=== PATIENT | male | born 1975 | race Caucasian/White ===

== ENCOUNTER 2019-01-07 08:36 | Inpatient (IN) | payer MEDICAID ==
[~2019-01-07] VITALS: Ht 185.4 cm; Wt 61.0 kg
[2019-01-07 09:30] LABS: Basophils # (auto) 0.1 uL; Basophils % (auto) 0.5 % (0.0-2.0); Eosinophils # (auto) 0.2 uL; Hematocrit 51.8 % (41.0-53.0); Hemoglobin 17.2 g/dL (13.5-17.5); Lymphocytes # (auto) 2.4 uL; Lymphocytes % (auto) 21.5 % (10.0-50.0); Mean Corpuscular Hemoglobin 31.3 pg (28.0-32.0); Mean Corpuscular Hgb Conc. 33.3 g/dL (32.0-36.0); Mean Corpuscular Volume 94.2 fL (80.0-100.0); Monocytes # (auto) 0.8 uL; Monocytes % (auto) 6.7 % (0.0-12.0); Neutrophils # (auto) 7.8 uL; Neutrophils % (auto) 69.3 % (37.0-80.0); Platelet Count (auto) 383 10^3/uL (140-450); Red Cell Distribution Width 13.8 % (11.8-14.3); White Blood Cell 11.3 10^3/uL (4.4-10.8)
[2019-01-07 09:50] LABS: Albumin 2.9 g/dL (3.4-5.0); Calcium 8.5 mg/dL (8.5-10.1); Potassium 3.9 mmol/L (3.5-5.1)
[2019-01-07 09:53] LABS: Bilirubin, Total 0.4 mg/dL (0.2-1.0); Total Protein 7.6 g/dL (6.4-8.2)
[2019-01-07] MEDS ORDERED: SODIUM CHLORIDE 0.9% 1,000 ML IVB ONE (10:56)
[2019-01-07] MEDS ORDERED: ONDANSETRON HCL 4 MG/2 ML VIAL IV ONE (11:00)
[2019-01-07 11:21] LABS: Magnesium 2.1 mg/dL (1.6-2.6)
[2019-01-07 11:36] LABS: INR 1.09 (0.9-1.15); Partial Thromboplastin Time 31.5 sec (23.78-33.04); Prothrombin Time 11.6 sec (9.27-12.13)
[2019-01-07] MEDS ORDERED: PANTOPRAZOLE 40 MG/10 ML VIAL IV ONE ×2 (13:30→14:15)
[2019-01-07] MEDS ORDERED: cefTRIAXone 1GM/50ML D5W 50 ML IV ONE (14:15)
[2019-01-07] MEDS ORDERED: MORPHINE SULFATE 4 MG/ML SYR/VIAL IV PRN (14:15)
[2019-01-07] MEDS ORDERED: GASTROGRAFIN 120 ML SOL ONE (14:17)
[2019-01-07] MEDS ORDERED: IOTHALAMATE MEGLUMINE INJ 250ML BOT UR ONE (14:17)
[2019-01-07] MEDS: SODIUM CHLORIDE 0.9% 1,000 ML IV SCH (16:04)
[2019-01-07 19:45] VITALS: BP 119/76
--- NOTE | 2019-01-07 19:45 | NUR ---
MS admit from [facility] admitted to MS. Patient oriented to Lluvia Qiu, primary RN, unit, room, bed, and unit policies regarding patient care and visiting hours. Patient weighed by bedscale and encouraged to call if they need something. All questions and concerns addressed, patient verbalized understanding. Note: alert and oriented x 4. on oxygen at 2L via NC with even and unlabored respirations, no s/s of distress or SOB. Patient reports burning and pain upon voiding. Patient reports he was discharged from [facility] on October 19 and left with abd pain and nausea since discharge. Patient reports he vomits periodically through week. IV intact and patent, infusing NS at 60mL/hr. Patient reports abd pain 10/10, will follow up with pain medication per orders. Patient is ambulatory with steady gait and turns independently in bed. Instructed patient on POC, patient verbalized understanding. Will continue care.
[2019-01-07 20:00] VITALS: BP 119/76
[2019-01-07] MEDS: ONDANSETRON HCL 4 MG/2 ML VIAL IV PRN (20:20)
[2019-01-07 21:15] LABS: Urine Bacteria MANY /hpf (None Seen); Urine Blood 2+ /uL (Negative); Urine Specific Gravity 1.009 (1.001-1.035); Urine WBC 62 /hpf (0 - 3); Urine WBC Clumps PRESENT /hpf (None Seen)
--- NOTE | 2019-01-07 22:10 | NUR ---
POM taken to pharmacy
[2019-01-08] MEDS ORDERED: APIX5TAB OR (04:34)
[2019-01-08 05:00] VITALS: BP 95/61
[2019-01-08 05:39] LABS: Basophils # (auto) 0 uL; Basophils % (auto) 0.6 % (0.0-2.0); Eosinophils # (auto) 0.5 uL; Eosinophils % (auto) 5.9 % (0.0-7.0); Hematocrit 44.4 % (41.0-53.0); Hemoglobin 14.8 g/dL (13.5-17.5); Lymphocytes # (auto) 2.8 uL; Lymphocytes % (auto) 35.6 % (10.0-50.0); Mean Corpuscular Hemoglobin 31.5 pg (28.0-32.0); Mean Corpuscular Hgb Conc. 33.4 g/dL (32.0-36.0); Mean Corpuscular Volume 94.5 fL (80.0-100.0); Monocytes # (auto) 0.5 uL; Monocytes % (auto) 6.6 % (0.0-12.0); Neutrophils % (auto) 51.3 % (37.0-80.0); Platelet Count (auto) 300 10^3/uL (140-450); Red Cell Distribution Width 13.8 % (11.8-14.3); White Blood Cell 7.8 10^3/uL (4.4-10.8)
[2019-01-08 06:02] LABS: BUN/Creatinine Ratio 11.5; Potassium 4.5 mmol/L (3.5-5.1)
[2019-01-08] MEDS: SODIUM CHLORIDE 0.9% 1,000 ML IV SCH (06:55)
--- NOTE | 2019-01-08 07:03 | NUR ---
Closing Note patient sleeping with even and unlabored respiration. no s/s of distress. IV intact and patent infusing NS at 60mL/hr. Endorsed care to day shift RN
--- NOTE | 2019-01-08 07:46 | NUR ---
Assumed care of pt, awake and alert, no s&s of distress/sob or pain noted, instructed on poc and to call for assist prn, will continue to monitor for changes q1h and prn.
[2019-01-08 09:00] VITALS: BP 92/59
[2019-01-08] MEDS: cefTRIAXone 1GM/50ML D5W 50 ML IV SCH (09:03)
[2019-01-08] MEDS ORDERED: PANTOPRAZOLE 40 MG/10 ML VIAL IV SCH (10:00)
[2019-01-08] MEDS ORDERED: EZ-GAS II GRANULES (RADIOLOGY USE) PO ONE (12:00)
[2019-01-08] MEDS ORDERED: BARIUM SULFATE 98% 340 GM PWDR ONE (12:01)
[2019-01-08] MEDS ORDERED: EZ PAQUE SUSP 12OZ BTL ONE (12:01)
--- NOTE | 2019-01-08 12:14 | NUR ---
Pt awake and alert, no s&s of distress/sob or pain noted, will continue to monitor for changes q1h and prn.
[2019-01-08] MEDS ORDERED: ENOXAPARIN SOD 60 MG/0.6 ML SYRINGE SC ONE (12:45)
[2019-01-08] MEDS: ENOXAPARIN SOD 60 MG/0.6 ML SYRINGE SC SCH ×2 (12:55→21:04)
[2019-01-08 13:00] VITALS: BP 113/77
--- NOTE | 2019-01-08 13:32 | NUR ---
Diez catheter inserted, tolerated fairly.
[2019-01-08] MEDS ORDERED: IOTHALAMATE MEGLUMINE INJ 250ML BOT UR ONE (13:41)
[2019-01-08] MEDS: SOD CHL 0.45% 1,000 ML IV SCH (14:51)
--- NOTE | 2019-01-08 15:44 | NUR ---
Pt awake and alert, no s&s of distress/sob or pain noted, will continue to monitor for changes q1h and prn.
--- NOTE | 2019-01-08 16:07 | NUR ---
Diez catheter discontinued, tolerated well.
[2019-01-08 20:00] VITALS: BP 111/76
--- NOTE | 2019-01-08 20:00 | NUR ---
Opening Shift Note Assumed care of patient, awake and alert. on oxygen at 2L via NC with even and unlabored respirations, no s/s of distress or SOB. Patient reports less burning and pain upon voiding. Patient reports nausea. IV intact and patent, infusing 0.45%NS at 75mL/hr. Patient reports tolerable abd pain 6/10 at this time, educated on pain management, patient verbalized understanding. Patient is ambulatory with steady gait and turns independently in bed. Instructed patient on POC and to call for assist PRN, will continue to monitor for changes Q1hr and PRN.
[2019-01-08] MEDS: PANTOPRAZOLE 40 MG TAB PO SCH (21:04)
[2019-01-08] MEDS: ONDANSETRON HCL 4 MG/2 ML VIAL IV PRN (21:14)
[2019-01-08 21:41] VITALS: BP 111/76
--- NOTE | 2019-01-09 00:57 | NUR ---
Care endorsed to Umu REYES report given. patient resting with even and unlabored respirations. no s/s of distress.
[2019-01-09] MEDS: SOD CHL 0.45% 1,000 ML IV SCH ×2 (04:05→17:25)
[2019-01-09 05:00] VITALS: BP 105/64
--- NOTE | 2019-01-09 07:40 | NUR ---
Opening Shift Note Assumed care of patient, awake and alert laying in bed. No S/S of distress/SOB or pain. Instructed on POC and to call for assist PRN, will continue to monitor for changes Q1hr and PRN. NPO status maintained for UGI.
[2019-01-09] MEDS ORDERED: EZ-GAS II GRANULES (RADIOLOGY USE) PO ONE (09:01)
[2019-01-09] MEDS ORDERED: GASTROGRAFIN 120 ML SOL ONE ×2 (09:01→09:06)
[2019-01-09] MEDS ORDERED: EZ PAQUE SUSP 12OZ BTL ONE (09:07)
--- NOTE | 2019-01-09 09:10 | NUR ---
Patient left unit in wheelchair with refinery technician.
--- NOTE | 2019-01-09 10:00 | NUR ---
Family members at bedside awaiting patient's return to unit.
--- NOTE | 2019-01-09 10:30 | NUR ---
Patient returned to unit in wheelchair. Family members at bedside. with patient.
[2019-01-09] MEDS: ENOXAPARIN SOD 60 MG/0.6 ML SYRINGE SC SCH ×2 (10:43→23:03)
[2019-01-09] MEDS: cefTRIAXone 1GM/50ML D5W 50 ML IV SCH (10:43)
[2019-01-09] MEDS: ONDANSETRON HCL 4 MG/2 ML VIAL IV PRN (10:43)
[2019-01-09] MEDS: PANTOPRAZOLE 40 MG TAB PO SCH ×2 (10:43→23:04)
[2019-01-09] MEDS: HYDROcodone-ACET 5/325MG TAB PO PRN ×2 (10:44→23:04)
[2019-01-09 17:00] VITALS: BP 94/61
--- NOTE | 2019-01-09 18:42 | NUR ---
Patient sitting in chair at bedside. No complaints of pain or SOB.
[2019-01-09 21:36] VITALS: BP 107/71
[2019-01-10 05:00] VITALS: BP 100/60
[2019-01-10] MEDS: SOD CHL 0.45% 1,000 ML IV SCH (05:45)
[2019-01-10] MEDS: HYDROcodone-ACET 5/325MG TAB PO PRN ×3 (07:48→20:19)
[2019-01-10 09:00] VITALS: BP 100/67
[2019-01-10] MEDS: ENOXAPARIN SOD 60 MG/0.6 ML SYRINGE SC SCH ×2 (09:39→21:14)
[2019-01-10] MEDS: PANTOPRAZOLE 40 MG TAB PO SCH ×2 (09:39→21:14)
[2019-01-10] MEDS: cefTRIAXone 1GM/50ML D5W 50 ML IV SCH (09:39)
[2019-01-10] MEDS: SUCRALFATE 1 GM/10 ML ORAL SUSP PO SCH ×3 (12:07→21:13)
[2019-01-10 13:00] VITALS: BP 96/69
--- NOTE | 2019-01-10 15:00 | NUR ---
IV insertion IV access obtained, via clean sterile technique by inserting 20 gauge catheter at right forearm after 1 attempt. IV secured properly. No trauma to site. Patient tolerated well. IV to left AC removed with catheter intact and pressure dressing applied.
[2019-01-10 16:21] VITALS: BP 91/66
--- NOTE | 2019-01-10 19:30 | NUR ---
OPENING NOTE REPORT RECEIVED FROM DAY SHIFT RN PATIENT IS RESTING IN BED, C/O ABD PAIN AFTER EATING DINNER. PT REQUESTS NORCO. PATIENT EDUCATED THAT NORCO IS NOT DUE AT THIS TIME. FULL PHYSICAL ASSESSMENT DONE-SEE INTERVENTIONS.POC FOR TONIGHT DISCUSSED, ALL QUESTIONS ANSWERED.CALL LIGHT WITHIN REACH.
--- NOTE | 2019-01-10 20:15 | NUR ---
NPO AT MIDNIGHT SPOKE WITH US TECH, SINCE PATIENT ATE DINNER TRAY, ULTRASOUND CANNOT BE DONE AT THIS TIME. PER CORPORATE HEALTH CONSULTANT, "KEEP PATIENT NPO AFTER MIDNIGHT" WILL EDUCATE PATIENT NOT TO EAT OR DRINK ANYTHING AFTER MIDNIGHT
[2019-01-10 22:00] VITALS: BP 100/68
--- NOTE | 2019-01-10 22:00 | NUR ---
BLADDER SCAN ORDER FROM FOR BLADDER SCAN BLADDER SCAN REVEALED >200mL urine in bladder pre-void. DURING SCAN, PATIENT STATED HE NEEDED TO VOID. PATIENT WENT TO RESTROOM AND WAS ABLE TO VOID WITHOUT DIFFICULTY. POST VOID SCAN REVEALED <10mL IN BLADDER PATIENT DENIES ANY FULLNESS OR RETENTION S/P VOID.
[2019-01-11 05:00] VITALS: BP 97/72
[2019-01-11 05:56] LABS: Basophils # (auto) 0 uL; Basophils % (auto) 0.4 % (0.0-2.0); Eosinophils # (auto) 0.2 uL; Eosinophils % (auto) 1.8 % (0.0-7.0); Hematocrit 48.1 % (41.0-53.0); Lymphocytes # (auto) 2.9 uL; Lymphocytes % (auto) 28.2 % (10.0-50.0); Mean Corpuscular Hgb Conc. 33.3 g/dL (32.0-36.0); Mean Corpuscular Volume 93.2 fL (80.0-100.0); Monocytes # (auto) 0.5 uL; Monocytes % (auto) 5.3 % (0.0-12.0); Neutrophils # (auto) 6.6 uL; Neutrophils % (auto) 64.3 % (37.0-80.0); Nucleated Red Blood Cells % 0.1 %; Platelet Count (auto) 344 10^3/uL (140-450); Red Blood Cells 5.16 10^6/uL (4.5-5.90); Red Cell Distribution Width 13.4 % (11.8-14.3); White Blood Cell 10.2 10^3/uL (4.4-10.8)
[2019-01-11 06:11] LABS: BUN/Creatinine Ratio 8.3; Calcium 7.9 mg/dL (8.5-10.1); Potassium 4.3 mmol/L (3.5-5.1)
[2019-01-11] MEDS: SUCRALFATE 1 GM/10 ML ORAL SUSP PO SCH ×4 (06:16→21:03)
--- NOTE | 2019-01-11 07:26 | NUR ---
CLOSING NOTE REPORT ENDORSED TO DAY SHIFT RN PATIENT STABLE THROUGHOUT NIGHT. PT NPO PENDING ABDOMINAL ULTRASOUND THIS MORNING. CALL LIGHT WITHIN REACH
--- NOTE | 2019-01-11 07:45 | NUR ---
Opening Shift Note Assumed care of patient, awake and alert. No S/S of distress/SOB or pain. Instructed on POC and to call for assist PRN, will continue to monitor for changes Q1hr and PRN. NPO status maintained for abdominal ultra sound.
[2019-01-11 08:00] VITALS: BP 94/55
[2019-01-11] MEDS: cefTRIAXone 1GM/50ML D5W 50 ML IV SCH (08:56)
[2019-01-11] MEDS: PANTOPRAZOLE 40 MG TAB PO SCH ×2 (08:56→21:03)
[2019-01-11] MEDS: ENOXAPARIN SOD 60 MG/0.6 ML SYRINGE SC SCH ×2 (09:00→21:03)
[2019-01-11 12:46] VITALS: BP 92/62
[2019-01-11] MEDS: HYDROcodone-ACET 5/325MG TAB PO PRN ×2 (12:46→20:00)
[2019-01-11] MEDS ORDERED: SODIUM CHLORIDE 0.9% 500 ML IV ONE (14:00)
--- NOTE | 2019-01-11 15:00 | NUR ---
NUTRITION ASSESSMENT NOTES Please refer to link notes of nutrition screen form filed under the intervention section of the plan of care for further details. Est. Needs based on IBW (84 kg): 2100 kcal to 2500 kcal (25-30 kcal/kgIBW), 67 gms to 84 gms pro (0.8-1.0 gms/kgBW). Will continue to monitor pertinent labs and reassess nutrient need prn Thank you. Addendum: 01/11/19 at [address] Amended: Links added.
[2019-01-11] MEDS: SODIUM CHLORIDE 0.9% 1,000 ML IV SCH ×2 (16:45→23:46)
[2019-01-11 16:59] VITALS: BP 108/73
--- NOTE | 2019-01-11 19:30 | NUR ---
OPENING NOTE REPORT RECEIVED FROM DAY SHIFT RN PATIENT IS A/OX4 SITTING UP AT BEDSIDE, EATING DINNER TRAY. PATIENT MADE AWARE TO BE NPO AT MIDNIGHT FOR PENDING EGD TOMORROW. POC FOR TONIGHT DISCUSSED AND ALL QUESTIONS ANSWERED. CALL LIGHT WITHIN REACH.
[2019-01-11 22:00] VITALS: BP 110/73
[2019-01-12 05:00] VITALS: BP 103/74
[2019-01-12] MEDS: SUCRALFATE 1 GM/10 ML ORAL SUSP PO SCH ×4 (05:45→23:07)
[2019-01-12 05:50] LABS: INR 1.03 (0.9-1.15); Partial Thromboplastin Time 29.9 sec (23.78-33.04)
[2019-01-12 06:16] LABS: Potassium 4.2 mmol/L (3.5-5.1)
[2019-01-12 06:28] LABS: Albumin 2.1 g/dL (3.4-5.0); Bilirubin, Total 0.2 mg/dL (0.2-1.0); Calcium 8.2 mg/dL (8.5-10.1); Total Protein 5.7 g/dL (6.4-8.2)
--- NOTE | 2019-01-12 07:42 | NUR ---
Patient sitting in bed, quiet.
--- NOTE | 2019-01-12 07:42 | NUR ---
Received patient on NPO. Patient said he has not talk to Bolivar Mallory yet regarding the EGD.
--- NOTE | 2019-01-12 07:42 | NUR ---
CLOSING NOTE REPORT ENDORSED TO DAY SHIFT RN PATIENT IS RESTING IN BED, NPO SINCE MIDNIGHT FOR PENDING EGD TODAY CONSENTS IN CHART TO BE SIGNED, ENDORSED TO DAY SHIFT RN
[2019-01-12] MEDS: cefTRIAXone 1GM/50ML D5W 50 ML IV SCH (08:24)
[2019-01-12] MEDS: SODIUM CHLORIDE 0.9% 1,000 ML IV SCH ×2 (08:25→21:29)
[2019-01-12] MEDS ORDERED: diphenhdrAMINE HCL 50 MG/1 ML VL ONE (08:32)
[2019-01-12] MEDS ORDERED: SODIUM CHLORIDE LOCK 10 ML ONE (08:32)
[2019-01-12] MEDS ORDERED: fentaNYL CITRATE 100 MCG/2 ML VL ONE (08:32)
[2019-01-12] MEDS ORDERED: LIDOCAINE VISCOUS 2% 15ML UD ONE (08:32)
[2019-01-12 08:42] VITALS: BP 101/63
[2019-01-12] MEDS: PANTOPRAZOLE 40 MG TAB PO SCH ×2 (09:20→23:07)
[2019-01-12] MEDS: ENOXAPARIN SOD 60 MG/0.6 ML SYRINGE SC SCH ×2 (09:20→23:07)
--- NOTE | 2019-01-12 10:06 | NUR ---
Celena Lundy came over. Patient refused Diez catheter insertion.
--- NOTE | 2019-01-12 10:30 | NUR ---
Dr. De La Rosa came over to see the patient.
[2019-01-12 13:00] VITALS: BP 103/78
--- NOTE | 2019-01-12 13:01 | NUR ---
Received a call from Pre Op RN Idalia to bring the patient to Pre Op in 20 minutes. Idalia made aware patient stated that he has not talked to Carline Mallory. yet, patient has not signed the EGD consents yet.
--- NOTE | 2019-01-12 13:45 | NUR ---
Patient transferred via wheelchair to Pre Op. No acute distress noted, IV line intact and patent. Endorsed patient to Pre Op RN Idalia. Patient has not signed the consents for EGD, stated he has not talked to the doctor yet.
[2019-01-12] MEDS: MIDAZOLAM HCL 5 MG/ML-1ML VIAL ONE ×2 (14:14→14:19)
--- NOTE | 2019-01-12 15:10 | NUR ---
Patient back to room post-EGD. Patient awake. On bed alarm.
[2019-01-12 17:03] VITALS: BP 100/63
[2019-01-12] MEDS: HYDROcodone-ACET 5/325MG TAB PO PRN (18:33)
--- NOTE | 2019-01-12 18:33 | NUR ---
Patient stated he's in pain, at 7/10 at this time. [place] 5/325 PO given as ordered.
[2019-01-12 22:00] VITALS: BP 97/69
[2019-01-13 04:49] VITALS: BP 94/60
[2019-01-13] MEDS: SODIUM CHLORIDE 0.9% 1,000 ML IV SCH ×2 (06:08→16:00)
[2019-01-13] MEDS: SUCRALFATE 1 GM/10 ML ORAL SUSP PO SCH ×3 (06:09→13:21)
--- NOTE | 2019-01-13 07:02 | NUR ---
SIGN OFF PATIENT RESTING IN BED. NO COMPLAINTS OF PAIN AT THIS TIME OR S/S OF DISTRESS OR SOB. BED IN LOWEST LOCKED POSITION AND CALL CLEANING W/IN REACH. ENDORSING CARE TO DAY RN.
--- NOTE | 2019-01-13 07:25 | NUR ---
On O2 at 2 LPM.
--- NOTE | 2019-01-13 07:25 | NUR ---
Patient in bed,a sleep. No acute distress noted.
[2019-01-13 08:07] VITALS: BP 121/65
[2019-01-13] MEDS ORDERED: ESOM40CA39 PO (09:19)
[2019-01-13] MEDS: ENOXAPARIN SOD 60 MG/0.6 ML SYRINGE SC SCH (09:39)
--- NOTE | 2019-01-13 09:40 | NUR ---
Patient sitting in bed, watching TV.
[2019-01-13] MEDS: cefTRIAXone 1GM/50ML D5W 50 ML IV SCH (09:42)
[2019-01-13] MEDS: PANTOPRAZOLE 40 MG TAB PO SCH (09:42)
--- NOTE | 2019-01-13 09:47 | NUR ---
Dr. De La Rosa at bedside. to put in discharge orders.
[2019-01-13 11:11] VITALS: BP 121/65
[2019-01-13 11:28] VITALS: BP 121/65
--- NOTE | 2019-01-13 12:15 | NUR ---
Patient eating lunch at this time, stated his sister will pick him up.
[2019-01-13 12:59] VITALS: BP 149/74
[2019-01-13 13:00] VITALS: BP 94/59
--- NOTE | 2019-01-13 15:55 | NUR ---
Discharge instructions given as ordered. Encourage to follow up with PMD as instructed. Patient to make a follow up appointment with Dr. Deutsch. All questions and concerns addressed. Patient verbalized understanding. Medication reconciliation form completed and copy given to patient. Home medications held in Pharmacy (Eliquis) returned to patient. IV removed with catheter intact, pressure dressing applied. Patient is taken to vehicle via wheelchair with all personal belongings, accompanied by staff and family member. No distress noted at time of departure.
[2019-01-13] MEDS ORDERED: Ensure Enlive Vanilla 8oz Bottle PO SCH (18:00)
== END 2019-01-13 15:55 | disposition home or self-care (01) | DRG 241 ==
LOC: ER 08:36 → OVERFLOW 14:13 → WEST WING 19:24
PROVIDERS: ADMIT Internal Medicine; ATTEND Internal Medicine
PROC: 0DB68ZX Excision of Stomach, Via Natural or Artificial Opening Endoscopic, Diagnostic (ICD-10-PCS; principal; 2019-01-12 14:08)
DX: K29.70 Gastritis, unspecified, without bleeding (principal); N17.0 Acute kidney failure with tubular necrosis; K56.600 Partial intestinal obstruction, unspecified as to cause; D68.51 Activated protein C resistance; I25.3 Aneurysm of heart; E44.0 Moderate protein-calorie malnutrition; N18.3 Chronic kidney disease, stage 3 (moderate); I27.20 Pulmonary hypertension, unspecified; N30.90 Cystitis, unspecified without hematuria; R39.89 Other symptoms and signs involving the genitourinary system; I25.10 Atherosclerotic heart disease of native coronary artery without angina pectoris; K92.1 Melena; N40.0 Benign prostatic hyperplasia without lower urinary tract symptoms; K57.30 Diverticulosis of large intestine without perforation or abscess without bleeding; K21.9 Gastro-esophageal reflux disease without esophagitis; F32.9 Major depressive disorder, single episode, unspecified; I25.2 Old myocardial infarction; Z79.01 Long term (current) use of anticoagulants; Z82.49 Family history of ischemic heart disease and other diseases of the circulatory system; Z83.3 Family history of diabetes mellitus; Z86.718 Personal history of other venous thrombosis and embolism; Z99.81 Dependence on supplemental oxygen; Z86.711 Personal history of pulmonary embolism
CPT/HCPCS: 36415; 71046; 74176; 74245; 74430; 76705; 80048; 80053; 81001; 82150; 83690; 83735; 83880; 84153; 84484; 85025; 85610; 85730; 87086; 94761; 96374; 96375; A6257; C9113; G0378; J0696; J2250; J2405

== ENCOUNTER 2020-09-15 21:54 | Inpatient (IN) | payer MEDICAID ==
[~2020-09-15] VITALS: Ht 188 cm; Wt 82.7 kg
[~2020-09-15 21:54] MED LIST: APIX5TAB OR; ESOM40CA39 PO
[2020-09-15 22:48] LABS: Basophils % (auto) 0.7 % (0.0-2.0); Eosinophils # (auto) 0 10 ^3/uL (0-0.8); Lymphocytes # (auto) 1.4 10 ^3/uL (0.4-5.4); Monocytes # (auto) 0.8 10 ^3/uL (0-1.3); White Blood Cell 7.1 10^3/uL (4.4-10.8)
[2020-09-15 22:49] LABS: Basophils # (auto) 0.1 10 ^3/uL (0-0.2); Eosinophils % (auto) 0.1 % (0.0-7.0); Hematocrit 54.1 % (41.0-53.0); Hemoglobin 18.2 g/dL (13.5-17.5); Lymphocytes % (auto) 20.4 % (10.0-50.0); Mean Corpuscular Hemoglobin 31.5 pg (28.0-32.0); Mean Corpuscular Hgb Conc. 33.7 g/dL (32.0-36.0); Mean Corpuscular Volume 93.6 fL (80.0-100.0); Monocytes % (auto) 11.8 % (0.0-12.0); Neutrophils # (auto) 4.7 10 ^3/uL (1.6-8.6); Nucleated Red Blood Cells % 0.2 %; Red Blood Cells 5.78 10^6/uL (4.5-5.90); Red Cell Distribution Width 14.9 % (11.8-14.3)
[2020-09-15 23:02] LABS: INR 2.77 (0.9-1.15); Partial Thromboplastin Time 37.4 sec (23.0-31.2)
[2020-09-15 23:03] LABS: Albumin 3.9 g/dL (3.4-5.0); Anion Gap 5 (5-15); BUN/Creatinine Ratio 14.9; Blood Urea Nitrogen 29 mg/dL (7-18); Calcium 8.5 mg/dL (8.5-10.1); Carbon Dioxide 24 mmol/L (21-32); Chloride 107 mmol/L (98-107); GFR African American 48 mL/min; GFR Non-African American 40 mL/min; Glucose 96 mg/dL (74-106); Platelet Count (auto) 188 10^3/uL (140-450); Potassium 5.1 mmol/L (3.5-5.1); Sodium 136 mmol/L (136-145)
[2020-09-15 23:07] LABS: Alanine Aminotransferase 22 U/L (16-61); Alkaline Phosphatase 82 U/L (45-117); Aspartate Aminotransferase 23 U/L (15-37); Bilirubin, Total 0.6 mg/dL (0.2-1.0); Total Protein 7.8 g/dL (6.4-8.2)
[2020-09-15] MEDS ORDERED: WARFARIN SODIUM 5 MG TAB PO ONE (23:15)
[2020-09-16] MEDS ORDERED: ACETAMINOPHEN 325 MG TAB PO PRN (03:00)
[2020-09-16] MEDS ORDERED: NITROGLYCERIN 0.4 MG SL TAB SL PRN (03:00)
[2020-09-16] MEDS ORDERED: MORPHINE SULF INJ 2 MG/ML SYRINGE 1ML IV PRN (03:00)
[2020-09-16] MEDS ORDERED: ONDANSETRON HCL 4 MG/2 ML VIAL IV PRN (03:00)
[2020-09-16 07:14] LABS: Urine Bacteria NONE SEEN /hpf (None Seen); Urine Blood Negative /uL (Negative); Urine Specific Gravity 1.017 (1.001-1.035); Urine WBC 6 /hpf (0 - 3)
[2020-09-16 08:35] LABS: Basophils # (auto) 0 10 ^3/uL (0-0.2); Basophils % (auto) 0.4 % (0.0-2.0); Eosinophils # (auto) 0 10 ^3/uL (0-0.8); Eosinophils % (auto) 0.4 % (0.0-7.0); Hematocrit 52.4 % (41.0-53.0); Hemoglobin 17.6 g/dL (13.5-17.5); Lymphocytes # (auto) 1.6 10 ^3/uL (0.4-5.4); Lymphocytes % (auto) 27.8 % (10.0-50.0); Mean Corpuscular Hemoglobin 31.4 pg (28.0-32.0); Mean Corpuscular Hgb Conc. 33.6 g/dL (32.0-36.0); Mean Corpuscular Volume 93.7 fL (80.0-100.0); Monocytes # (auto) 0.8 10 ^3/uL (0-1.3); Monocytes % (auto) 13.2 % (0.0-12.0); Neutrophils # (auto) 3.4 10 ^3/uL (1.6-8.6); Neutrophils % (auto) 58.2 % (37.0-80.0); Nucleated Red Blood Cells % 0.2 %; Platelet Count (auto) 159 10^3/uL (140-450); White Blood Cell 5.8 10^3/uL (4.4-10.8)
[2020-09-16 08:53] LABS: Albumin 3.5 g/dL (3.4-5.0); Anion Gap 3 (5-15); Blood Urea Nitrogen 29 mg/dL (7-18); Calcium 8.1 mg/dL (8.5-10.1); Carbon Dioxide 25 mmol/L (21-32); Chloride 110 mmol/L (98-107); Glucose 74 mg/dL (74-106); Potassium 4.7 mmol/L (3.5-5.1); Sodium 138 mmol/L (136-145)
[2020-09-16 09:03] LABS: Alanine Aminotransferase 20 U/L (16-61); Alkaline Phosphatase 72 U/L (45-117); Aspartate Aminotransferase 17 U/L (15-37); Bilirubin, Total 0.4 mg/dL (0.2-1.0); Cholesterol 189 mg/dL (< 200); GFR African American 52 mL/min; GFR Non-African American 43 mL/min; HDL Cholesterol 38 mg/dL (40-59); LDL Cholesterol 138 mg/dL (< 100); Total Protein 7.1 g/dL (6.4-8.2); Triglycerides 109 mg/dL (< 150)
--- NOTE | 2020-09-16 09:50 | NUR ---
Telemetry admit from ER RADABELARDO admitted to Telemetry unit after SBAR received Herrera. Patient oriented to Neisha Bradshaw RN primary RN, unit, room, bed, and unit policies regarding patient care and visiting hours. Patient now on continuous telemetry monitoring, tele box # 90 and telemetry reading on arrival to unit is Sinus Rhythm 80 bpm. Patient placed on bedside oxygen, weighed by bed scale and encouraged to call if they need something. All questions and concerns addressed, patient verbalized understanding.
[2020-09-16] MEDS: ATORVASTATIN 20 MG TAB PO SCH (10:31)
[2020-09-16] MEDS: ASPirin 81 mg TAB PO SCH (10:32)
[2020-09-16] MEDS: HEPARIN SODIUM (PORCINE) 5000 UNITS/ML 1ML VIAL SC SCH ×2 (10:32→22:12)
[2020-09-16 10:51] VITALS: BP 124/87
[2020-09-16] MEDS ORDERED: ADENOSINE 70 MG in GIVE UN-DILUTED 0 ML IV STA (11:11)
--- NOTE | 2020-09-16 11:12 | NUR ---
PATIENT TAKEN OFF UNIT TO NUCLEAR MEDICINE VIA WHEELCHAIR. PATIENT HAS NO S/S OF DISTRESS AT THIS TIME.
[2020-09-16 11:18] VITALS: BP 124/87
[2020-09-16] MEDS ORDERED: WARF1TAB36 PO ×2 (11:37)
[2020-09-16] MEDS ORDERED: INFLUENZA QUAD 2020-2021 0.5 ML SYRG IM ONE (11:45)
[2020-09-16 11:48] VITALS: BP 119/86
[2020-09-16 12:30] VITALS: BP 112/80
[2020-09-16 17:09] VITALS: BP 105/66
--- NOTE | 2020-09-16 19:00 | NUR ---
CLOSING SHIFT NOTE PATIENT HAS NO S/S OF DISTRESS/SOB OR PAIN AT THIS TIME. WILL ENDORSE CARE TO CANE STRIPPER ERIC REBOLLAR
--- NOTE | 2020-09-16 20:00 | NUR ---
RECEIVED PATIENT FROM DAY SHIFT RN. PATIENT RESTING IN BED. NO S/S OF DISTRESS NOTED. DENIED PAIN FOR NOW. POC INSTRUCTED AND ENCOURAGED PATIENT TO CALL FOR COTTON PROGRAM TECHNICIAN IF NEEDED. BED IN LOWEST POSITION WITH SIDE RAILS UP X 2. CALL CLEANING WITHIN REACH. ALARM ON. CONTINUE TO MONITOR FOR CHANGES Q1H AND PRN.
[2020-09-16 22:00] VITALS: BP 122/82
[2020-09-17 05:00] VITALS: BP 108/74
--- NOTE | 2020-09-17 07:15 | NUR ---
OPENING SHIFT NOTE ASSUMED CARE OF PATIENT FROM PLASTICS TOOLING ENGINEER RN KETURAH. PATIENT IS AWAKE, ALERT, AND ORIENTED X4. PATIENT HAS NO S/S OF DISTRESS/SOB OR PAIN. INSTRUCTED PATIENT ON POC, PATIENT VERBALIZED UNDERSTANDING. BED IS IN LOWEST POSITION WITH SIDE RAILS RAISED X2, BED WHEELS LOCKED, AND CALL LIGHT IS WITHIN REACH. WILL CONTINUE TO MONITOR.
[2020-09-17 09:00] VITALS: BP 98/61
[2020-09-17] MEDS: ASPirin 81 mg TAB PO SCH (09:55)
[2020-09-17] MEDS: ATORVASTATIN 20 MG TAB PO SCH (09:55)
[2020-09-17] MEDS: HEPARIN SODIUM (PORCINE) 5000 UNITS/ML 1ML VIAL SC SCH ×2 (10:00→22:31)
[2020-09-17 12:56] VITALS: BP 95/66
--- NOTE | 2020-09-17 15:11 | NUR ---
SATISH BROWNING FOR DR. MENARD AWAITING CALL BACK.
--- NOTE | 2020-09-17 15:19 | NUR ---
MD MENARD SPOKE WITH DR. BROWNING. PER DR. BROWNING HE WILL LOOK AT STRESS TEST AND ECHO AND GIVE US RESULTS. AWAITING CALL BACK
--- NOTE | 2020-09-17 15:20 | NUR ---
MD MENARD AT BEDSIDE UPDATED MD ON PATIENT'S STATUS, MD IS AWARE. NO NEW ORDERS AT THIS TIME.
[2020-09-17 17:00] VITALS: BP 119/80
--- NOTE | 2020-09-17 17:43 | NUR ---
INFORMED MD MENARD THAT DR. BROWNING WANTS TO KEEP PATIENT BECAUSE PER DR. BROWNING PATIENT'S STRESS TEST IS ABNORMAL. MD BROWNING ORDERED DISCHARGE TO BE CANCELED. WILL FOLLOW THROUGH WITH ORDERS.
--- NOTE | 2020-09-17 18:46 | NUR ---
CLOSING SHIFT NOTE PATIENT HAS NO S/S OF DISTRESS/SOB OR PAIN AT THIS TIME. WILL ENDORSE CARE TO TRANSIT DRIVER ERIC SIMS.
--- NOTE | 2020-09-17 20:30 | NUR ---
open note assumed care of pt, upon entering room pt awake alert and oriented on room air with no distress noted or expressed. pt oriented to this nurse, denied any pain and was updated on plan of care. pt bed locked, low and 2x rails up. call light in reach, this nurse to round q1hr and prn. pt encouraged to call as needed.
[2020-09-18 00:10] VITALS: BP 114/81
--- NOTE | 2020-09-18 04:25 | NUR ---
pt refused vitals at this time stating "my vitals are fine," "im too tired right now". pt has no complaints at this time. will attempt at later time. call light in reach.
--- NOTE | 2020-09-18 07:07 | NUR ---
OPENING SHIFT NOTE ASSUMED CARE OF PATIENT FROM PARALEGAL INSTRUCTOR RN LEVI. PATIENT IS AWAKE, ALERT, AND ORIENTED X4. PATIENT HAS NO S/S OF DISTRESS/SOB OR PAIN. INSTRUCTED PATIENT ON POC, PATIENT VERBALIZED UNDERSTANDING. BED IS IN LOWEST POSITION WITH SIDE RAILS RAISED X2, BED WHEELS LOCKED, AND CALL LIGHT IS WITHIN REACH. WILL CONTINUE TO MONITOR.
[2020-09-18 09:00] VITALS: BP 104/71
--- NOTE | 2020-09-18 09:45 | NUR ---
DR. BROWNING AND DR. MENARD AT BEDSIDE UPDATED MDs ON PATIENT STATUS INCLUDING ORTHOSTATIC VITALS AND D-DIMER OF 1.00. BOTH MDs ARE AWARE AND WANT HEPARIN TO BE STOPPED AND START COUMADIN PER PHARMACY. MD MENARD ORDERED BMP. WILL CALL MD WITH RESULTS.
--- NOTE | 2020-09-18 09:50 | NUR ---
MD MENARD ORDERED PULMONARY CONSULT WITH DR. OLMSTEAD
[2020-09-18] MEDS: ASPirin 81 mg TAB PO SCH (10:14)
[2020-09-18] MEDS: ATORVASTATIN 20 MG TAB PO SCH (10:15)
[2020-09-18 10:46] LABS: BUN/Creatinine Ratio 21.3; Calcium 8.4 mg/dL (8.5-10.1); Potassium 4.4 mmol/L (3.5-5.1)
--- NOTE | 2020-09-18 11:20 | NUR ---
INFORMED MD MENARD OF PATIENT'S BUN AND CREATININE. ORDERED VQ SCAN. WILL FOLLOW THROUGH WITH ORDERS.
[2020-09-18 11:33] LABS: INR 1.52 (0.9-1.15); Partial Thromboplastin Time 36.2 sec (23.0-31.2)
--- NOTE | 2020-09-18 12:50 | NUR ---
Nutrition Assessment Est energy needs 9809-8226 kcal (20-25 kcal/kg BW 84.1kg) est protein needs 67-84g (0.8-1g/kg BW 84.1kg) Will reassess prn. Addendum: 09/18/20 at [address] Amended: Links added.
[2020-09-18 13:00] VITALS: BP 111/78
[2020-09-18 17:00] VITALS: BP 102/59
[2020-09-18] MEDS ORDERED: WARFARIN SODIUM 5 MG TAB PO ONE (17:00)
--- NOTE | 2020-09-18 19:45 | NUR ---
ASSUMED CARE, PT. AWAKE, NO C/O PAIN, NO SOB.
[2020-09-18 21:00] VITALS: BP 108/71
[2020-09-19 05:00] VITALS: BP 90/58
[2020-09-19 06:38] LABS: Hemoglobin 18.7 g/dL (13.5-17.5); White Blood Cell 5.4 10^3/uL (4.4-10.8)
[2020-09-19 06:51] LABS: Mean Corpuscular Hgb Conc. 33.1 g/dL (32.0-36.0); Mean Corpuscular Volume 93.7 fL (80.0-100.0); Platelet Count (auto) 176 10^3/uL (140-450); Red Blood Cells 6.03 10^6/uL (4.5-5.90); Red Cell Distribution Width 14.8 % (11.8-14.3)
[2020-09-19 06:54] LABS: INR 1.53 (0.9-1.15)
[2020-09-19 06:58] LABS: Hematocrit 56.5 % (41.0-53.0)
[2020-09-19 07:00] LABS: Band Neutrophils % (manual) 0; Blast Cells 0; Metamyelocytes % 0; Myelocytes % 0; Promyelocytes % 0; Reactive Lymphocytes 0
--- NOTE | 2020-09-19 07:05 | NUR ---
OPENING SHIFT NOTE ASSUMED CARE OF PATIENT FROM TRUCK GUARD ERIC BLANC. PATIENT IS AWAKE, ALERT, AND ORIENTED X4. PATIENT HAS NO S/S OF DISTRESS/SOB OR PAIN. INSTRUCTED PATIENT ON POC, PATIENT VERBALIZED UNDERSTANDING. BED IS IN LOWEST POSITION WITH SIDE RAILS RAISED X2, BED WHEELS LOCKED, AND CALL LIGHT IS WITHIN REACH. WILL CONTINUE TO MONITOR.
[2020-09-19 07:36] LABS: Basophils % (manual) 1 (0.0-2.0); Eosinophils % (manual) 1 (0-7); Lymphocytes % (manual) 30 (10.0-50.0); Monocytes % (manual) 8 (0-12)
[2020-09-19 09:00] VITALS: BP 97/60
[2020-09-19] MEDS: ASPirin 81 mg TAB PO SCH (10:01)
[2020-09-19] MEDS: ATORVASTATIN 20 MG TAB PO SCH (10:01)
--- NOTE | 2020-09-19 10:20 | NUR ---
MD MENARD AT BEDSIDE UPDATED MD ON PATIENT'S STATUS, MD IS AWARE. PER MD, PATIENT CAN BE DISCHARGED IF HIDA SCAN RESULTS ARE LOW PROBABILITY AND PATIENT DOES NOT NEED PULMONARY CONSULT. WILL FOLLOW THROUGH WITH ORDERS.
--- NOTE | 2020-09-19 11:46 | NUR ---
INFORMED MD MENARD OF PATIENT'S VQ RESULTS. PER MD PATIENT CAN BE DISCHARGED AND DOES NOT NEED TO BE SEEN BY WATER RECLAMATION SYSTEMS OPERATOR.
[2020-09-19 13:00] VITALS: BP 101/74
--- NOTE | 2020-09-19 14:52 | NUR ---
Discharge instructions given as ordered. Encourage to follow up with PMD as instructed. All questions and concerns addressed. Patient verbalized understanding. Medication reconciliation form completed and copy given to patient. IV removed with catheter intact, pressure dressing applied. Telemetry unit returned to ICU. Patient ambulated to vehicle with all personal belongings, accompanied by staff and family member. No distress noted at time of departure.
[2020-09-19] MEDS ORDERED: WARFARIN SODIUM 5 MG TAB PO ONE (17:00)
== END 2020-09-19 14:52 | disposition home or self-care (01) | DRG 198 ==
LOC: ER 21:54 → TELE 21:55 → TELE-WESTW 09-16 10:04
PROVIDERS: ADMIT Nurse Practitioner Family; ATTEND Internal Medicine
DX: R07.9 Chest pain, unspecified (principal); I25.10 Atherosclerotic heart disease of native coronary artery without angina pectoris; I26.99 Other pulmonary embolism without acute cor pulmonale; N17.0 Acute kidney failure with tubular necrosis; D68.9 Coagulation defect, unspecified; I13.0 Hypertensive heart and chronic kidney disease with heart failure and stage 1 through stage 4 chronic kidney disease, or unspecified chronic kidney disease; I50.9 Heart failure, unspecified; N18.9 Chronic kidney disease, unspecified; Z95.1 Presence of aortocoronary bypass graft; Z82.49 Family history of ischemic heart disease and other diseases of the circulatory system; Z83.3 Family history of diabetes mellitus; Z86.711 Personal history of pulmonary embolism; Z86.73 Personal history of transient ischemic attack (TIA), and cerebral infarction without residual deficits; Z79.01 Long term (current) use of anticoagulants
CPT/HCPCS: 36415; 71045; 78452; 78582; 80048; 80053; 80061; 81001; 83036; 83880; 84484; 85007; 85025; 85027; 85379; 85610; 85730; 93005; 93017; 93306; 93975; G0378; J0153

== ENCOUNTER 2021-09-29 12:36 | Emergency (ER) | payer OTHER, MEDICAID ==
[~2021-09-29] VITALS: Ht 188 cm; Wt 77.6 kg
[~2021-09-29 12:36] MED LIST changes: -APIX5TAB OR; +WARF1TAB36 PO
[2021-09-29 14:19] LABS: Basophils # (auto) 0 10 ^3/uL (0-0.2); Basophils % (auto) 0.2 % (0.0-2.0); Eosinophils # (auto) 0.1 10 ^3/uL (0-0.8); Hematocrit 51.9 % (41.0-53.0); Hemoglobin 17.6 g/dL (13.5-17.5); Lymphocytes # (auto) 1.3 10 ^3/uL (0.4-5.4); Lymphocytes % (auto) 20.8 % (10.0-50.0); Mean Corpuscular Hemoglobin 32.8 pg (28.0-32.0); Mean Corpuscular Hgb Conc. 33.9 g/dL (32.0-36.0); Mean Corpuscular Volume 96.8 fL (80.0-100.0); Monocytes # (auto) 0.3 10 ^3/uL (0-1.3); Monocytes % (auto) 5.4 % (0.0-12.0); Neutrophils # (auto) 4.6 10 ^3/uL (1.6-8.6); Neutrophils % (auto) 72.6 % (37.0-80.0); Nucleated Red Blood Cells % 0.1 %; Red Blood Cells 5.36 10^6/uL (4.5-5.90); Red Cell Distribution Width 13.4 % (11.8-14.3); White Blood Cell 6.4 10^3/uL (4.4-10.8)
[2021-09-29 14:34] LABS: Potassium 4.7 mmol/L (3.5-5.1)
[2021-09-29 14:45] LABS: Albumin 3.5 g/dL (3.4-5.0); BUN/Creatinine Ratio 17.2; Bilirubin, Total 0.6 mg/dL (0.2-1.0); Calcium 8.4 mg/dL (8.5-10.1); Total Protein 7.5 g/dL (6.4-8.2)
[2021-09-29 15:02] LABS: INR 2.59 (0.9-1.15); Partial Thromboplastin Time 41.5 sec (23.6-33.0)
[2021-09-29 16:19] VITALS: BP 140/87
== END 2021-09-29 16:25 | disposition home or self-care (01) ==
LOC: ER 12:36
DX: R07.89 Other chest pain (principal); R06.02 Shortness of breath; I25.10 Atherosclerotic heart disease of native coronary artery without angina pectoris; I50.9 Heart failure, unspecified; I25.2 Old myocardial infarction; Z95.1 Presence of aortocoronary bypass graft; Z79.01 Long term (current) use of anticoagulants; Z79.899 Other long term (current) drug therapy
CPT/HCPCS: 36415; 71046; 80053; 84484; 85025; 85379; 85610; 85730; 93005

== ENCOUNTER 2022-05-24 02:01 | Emergency (ER) | payer OTHER, MEDICAID ==
[~2022-05-24] VITALS: Ht 188 cm; Wt 79.8 kg
[2022-05-24 04:28] LABS: Basophils # (auto) 0 10 ^3/uL (0-0.2); Basophils % (auto) 0.3 % (0.0-2.0); Eosinophils # (auto) 0.1 10 ^3/uL (0-0.8); Hemoglobin 16.9 g/dL (13.5-17.5); Lymphocytes # (auto) 2.3 10 ^3/uL (0.4-5.4); Lymphocytes % (auto) 22.9 % (10.0-50.0); Mean Corpuscular Hemoglobin 32.1 pg (28.0-32.0); Mean Corpuscular Hgb Conc. 33.1 g/dL (32.0-36.0); Mean Corpuscular Volume 97.2 fL (80.0-100.0); Monocytes # (auto) 0.6 10 ^3/uL (0-1.3); Monocytes % (auto) 6.5 % (0.0-12.0); Neutrophils # (auto) 6.9 10 ^3/uL (1.6-8.6); Neutrophils % (auto) 69.3 % (37.0-80.0); Nucleated Red Blood Cells % 0.1 %; Red Blood Cells 5.25 10^6/uL (4.5-5.90); Red Cell Distribution Width 13.5 % (11.8-14.3)
[2022-05-24 04:48] LABS: Albumin 3.7 g/dL (3.4-5.0); Calcium 8.5 mg/dL (8.5-10.1); Potassium 4.8 mmol/L (3.5-5.1)
[2022-05-24 04:52] LABS: BUN/Creatinine Ratio 16.8; Bilirubin, Total 0.4 mg/dL (0.2-1.0); Total Protein 7.8 g/dL (6.4-8.2)
[2022-05-24 05:35] VITALS: BP 112/79
== END 2022-05-24 05:46 | disposition home or self-care (01) ==
LOC: ER 02:01
DX: I83.91 Asymptomatic varicose veins of right lower extremity (principal); I87.8 Other specified disorders of veins; Z86.73 Personal history of transient ischemic attack (TIA), and cerebral infarction without residual deficits
CPT/HCPCS: 36415; 80053; 85025; 93970